=== PATIENT | male | born 1990 | race Hispanic/Latino ===

== ENCOUNTER 2017-07-06 21:27 | Emergency (ER) | payer MEDICARE ==
[2017-07-07] MEDS ORDERED: DEXAMETHASONE SOD PHOSPHATE 10MG/ML 1ML VIAL ONE (00:04)
[2017-07-07] MEDS ORDERED: KETOROLAC TROMETHAMINE 60 MG/2 ML VIAL ONE (00:05)
== END 2017-07-07 00:27 | disposition home or self-care (01) ==
LOC: EDH 21:27
DX: M79.671 Pain in right foot (principal)
CPT/HCPCS: 96372 ×2; 99284; J1100; J1885